=== PATIENT | female | born 1990 | race Caucasian/White ===

== ENCOUNTER 2018-11-02 08:49 | Emergency (ER) | payer SELFPAY | END 2018-11-02 10:07 | disposition home or self-care (01) | LOC: FTE 08:49 | DX: S99.912A Unspecified injury of left ankle, initial encounter (principal); X50.1XXA Overexertion from prolonged static or awkward postures, initial encounter; Y92.9 Unspecified place or not applicable | CPT/HCPCS: 73610; 73630-LT; 99283-25 ==